=== PATIENT | male | born 1975 | race Caucasian/White ===

== ENCOUNTER → 2022-12-06 21:06 | Outpatient (CLI) | payer OTHER, SELFPAY | LOC: LAB 12-09 01:19 → LAB.DROPOF 12-14 08:18 | PROVIDERS: PCP Nurse Practitioner Family; Visit Provider Nurse Practitioner Family | DX: U07.1 COVID-19 (principal); R05.9 Cough, unspecified | CPT/HCPCS: C9803; U0003; U0005 ==